=== PATIENT | male | born 1960 | race Caucasian/White ===

== ENCOUNTER 2024-02-15 07:28 | Day surgery (SDC) | payer BC, SELFPAY ==
[2024-01-25 10:11] VITALS: BMI 44.9
[2024-01-25 10:36] LABS: % Basophils 1.3 % (0-2); % Eosinophils 5.6 % (0-6); % Immature Granulocytes 0.6 % (0-0.5); % Lymphocytes 26.7 % (20.5-51.1); % Monocytes 7.8 % (1.7-9.3); Absolute Basophils 0.1 10^3/uL (0-0.2); Absolute Eosinophils 0.3 10^3/uL (0-0.7); Absolute Lymphocytes 1.4 10^3/uL (1.2-3.4); Absolute Monocytes 0.4 10^3/uL (0.1-0.6); Absolute Neutrophils 3.1 10^3/uL (1.4-6.5); Hematocrit 33.4 % (39.0-52.0); Hemoglobin 11.7 g/dL (13.0-18.0); Mean Corpuscular Hgb 31.2 pg (27.0-31.0); Mean Corpuscular Volume 89.1 fL (80.0-94.0); Mean Platelet Volume 10.4 fL (7.4-10.4); Nucleated Red Blood Cells % 0 % (-); Platelet Count 220 10^3/uL (130-400); Red Blood Cell Count 3.75 10^6/uL (4.70-6.10); Red Cell Dist. Width 12.9 % (11.5-14.5); White Blood Cell Count 5.4 10^3/uL (4.8-10.8)
[2024-01-25 10:47] LABS: INR 1.04; PT 13.6 Sec (11.4-14.6)
[2024-01-25 10:51] LABS: ALT (SGPT) 21 U/L (0-50); AST (SGOT) 19 U/L (17-59); Albumin 3.9 g/dl (3.5-5.0); Alkaline Phosphatase 74 U/L (38-126); Blood Urea Nitrogen 30 mg/dl (9-20); Carbon Dioxide 21 mmol/L (22-30); Chloride 107 mmol/L (98-107); Estimated Creatinine Clearance 74 ml/min; Glucose 226 mg/dl (70-99); Magnesium 1.8 mg/dl (1.6-2.3); Sodium 142 mmol/L (135-145); Total Bilirubin 0.3 mg/dl (0.2-1.3); Total Protein 6.3 g/dl (6.3-8.2); eGFR 56.13
[2024-01-25 13:17] LABS: Glycohemoglobin (HgbA1c) 8.1 % (4.0-5.6)
--- NOTE | 2024-01-26 14:17 | W.PN.UPDATE ---
Update Note
Progress Note Update
Incidental thyroid nodule faxed to PCP
[2024-02-15] VITALS (9 sets, daily range): BP systolic 114–153; BP diastolic 64–84; BMI 44.3
[2024-02-15 08:29] LABS: Glucose - Point of Care 182 mg/dl (70-99)
[2024-02-15 11:10] LABS: ACT-LR - POC 158 Seconds (116-155)
[2024-02-15 11:15] LABS: ACT-LR - POC 242 Seconds (116-155)
[2024-02-15 11:15] LABS: ACT-LR - POC 253 Seconds (116-155)
[2024-02-15 11:32] LABS: ACT-LR - POC 303 Seconds (116-155)
[2024-02-15 11:39] LABS: Glucose - Point of Care 149 mg/dl (70-99)
--- NOTE | 2024-02-15 12:16 | ITS.CL.ABL ---
[employer] - Ablation
Ablation
Procedure Report:
ELECTROPHYSIOLOGY ABLATION STUDY
�
DATE:: February 15, 2024�����������������������������REFERRING: Dr. Zenon Landry
�
INDICATION: Paroxysmal supraventricular tachycardia in the form of atrial fibrillation.��Probably also noted to have significant APCs
�
HISTORY: See H and P.��As above
�
ANTIARRHYTHMIC DRUG: Multaq
�
PRE-PROCEDURE ANGELITA: No atrial thrombus
�
PRESENTING RHYTHM: Sinus bradycardia with frequent APD's which were demonstrated to be on the septal aspect of the right gilberto
�
'TIME-OUT':��called and confirmed.
�
SEDATION/ANESTHESIA:��provided via the anesthesia department using general anesthesia (LMA).
�
Right femoral venous - 8Fr
Left femoral venous - 8 Fr, 6 Fr
Ultrasound guidance for bilateral femoral vein access was utilized by me to obtain access with demonstration of normal anatomy
CHADS-VASC Score:
Vascade vascular closure was utilized in bilateral femoral venous sites
HAS-Bled Score
�
PROCEDURE:
1.��A decapolar CS catheter was placed within the CS for mapping and pacing.��This was also used as the reference catheter for the 3-D map.
�
2. The intracardiac ultrasound catheter was positioned in the RA to identify the FO for targeting of transseptal puncture, assist��in identification of the pulmonary vein ostia, monitoring pre and post ablation pulmonary vein flow velocities,
monitoring for 'bubble' formation during RF application as a sign of thermal injury,��and to monitor for pericardial effusion during mapping and ablation procedure.���Left atrial size, LV ejection fraction, and pulmonary vein flows were monitored
pre and post ablation procedure. The other valves were inspected and found to be free of significant regurgitation or stenosis.
�
3.��Half of the calculated heparin bolus was administered prior to the first transeptal puncture.��Transseptal puncture was performed to diagnose RA and LA pressure so that safetey of LA mapping and ablation could be further assessed, and to access
the left atrium and pulmonary veins for mapping and ablation.��This entailed advancing an 14 Tamazight Contour needle with dilator into the superior vena cava and withdrawing both (monitoring intracardiac ultrasound, fluoroscopy and tip pressure) with
the tip oriented toward the atrial septum.��The fossa ovalis was engaged (indicated by sudden displacement of the sheath tip as well as tenting of the fossa seen on intracardiac ultrasound).��Left atrial access required a pass with the Brockendevugh
needle extended.��Left atrial catheter position was confirmed by pressure monitoring (RA mean pressure 8 mm Hg and LA mean presure 12 mm Hg), LA saturation (99 %),��as well as fluoroscopy.��The sheath was advanced over the dilator and positioned in
the left atrium.��This procedure was repeated for the Agilis sheath.��The remainder of the calculated heparin bolus was administered and heparin was
infused to maintain ACT at 300 -350 seconds throughout the case.
�
4.��RA pacing was performed via the proximal decapolar poles and LA pacing was performed via the distal decapolr poles.
�
5. A quadrapolar catheter was first positioned at the His position for His Bundle recording which was tagged via the 3-D Navex sytem, and then passed to the RVA for RV pacing and recording.
�
6. The multipolar catheter and PFA catheter placed in each of the LIPV, LSPV, RSPV and the RIPV.��
�
7.��Next, a 3-D map was created using Navex.���A 3-D reconstructed CT image was compared to the 3-D Navex map to assist in anatomic interpretation, mapping and ablation.��The CT image and the NavX image were fused.
�
8. Pulmonary vein and extrapulmonary lesions were given. 82 PFA lesions were given to the pulmonary veins, interatrial septal region, and the left atrial posterior wall rendering the left atrial posterior wall electrically silent and entrance and
exit block in all 4 pulmonary veins.
With ablation of the septal aspect of the right veins the APD's were abolished and isolated firing was noted in the right superior and right inferior pulmonary veins.
9. Normal sinus node and AV node function noted.
TOTAL FLOURO TIME: 17.6 minutes 163 mGy
�
TOTAL RF DURATION: 0 minutes
�
REVERSAL OF HEPARIN: 35 mg of protamine, slow IV administration
�
COMPLICATIONS:
None
Intracardiac US shows no pericardial effusion post ablation.
�
SUMMARY:��
Complex left atrial mapping and ablation.
Isolation of all 4 pulmonary veins and the left atrial posterior wall. APD's were noted from interatrial septum at the septal aspect of the right veins which were abolished with ablation in that region.
�
RECOMMENDATIONS:
1. Ambulate in 2 to 3 hours
2. Resume anticoagulation
3.��Discontinue dronedarone
4.��Consider same-day discharge
�
Copy to: Dr. Zenon Landry
�
--- NOTE | 2024-02-15 13:35 | PTCARENOTE ---
Accucheck of 234 reported to Beulah BERNARD, no new orders at this time.
[2024-02-15 13:46] LABS: Glucose - Point of Care 234 mg/dl (70-99)
--- NOTE | 2024-02-15 14:55 | W.PN.UPDATE ---
Update Note
Progress Note Update
63 yo WM s/p PVI (same day). He denies cp, sob, jelena diet, voiding, amb w/o dizziness, b/l groins c/d/i soft Vascade closure, EKG SR. He will continue OAC Eliquis dose at home tonight. He will continue diltiazem, metoprolol and stop Multaq. He will
resume his diabetic meds as his BG is elevated from Decadron during case. Activity restrictions reviewed. He will f/u Dr. Landry in 1 mo. He is for d/c home after 3pm if groins remain stable.
SUMMARY:��
Complex left atrial mapping and ablation.
Isolation of all 4 pulmonary veins and the left atrial posterior wall. APD's were noted from interatrial septum at the septal aspect of the right veins which were abolished with ablation in that region.
�
RECOMMENDATIONS:
1. Ambulate in 2 to 3 hours
2. Resume anticoagulation
3.��Discontinue dronedarone
4.��Consider same-day discharge
�
Copy to: Dr. Zenon Landry
== END 2024-02-15 15:00 | disposition home or self-care (01) ==
LOC: CATH 07:28
PROVIDERS: ATTENDING PHYSICIAN Internal Medicine Cardiovascular Disease; FAMILY PHYSICIAN Family Medicine; OTHER PHYSICIAN Internal Medicine Cardiovascular Disease
DX: I48.0 Paroxysmal atrial fibrillation (principal); I12.9 Hypertensive chronic kidney disease with stage 1 through stage 4 chronic kidney disease, or unspecified chronic kidney disease; E11.22 Type 2 diabetes mellitus with diabetic chronic kidney disease; N18.30 Chronic kidney disease, stage 3 unspecified; R00.2 Palpitations; R55 Syncope and collapse; R06.02 Shortness of breath; E66.01 Morbid (severe) obesity due to excess calories; Z68.41 Body mass index [BMI] 40.0-44.9, adult; Z79.84 Long term (current) use of oral hypoglycemic drugs; E78.5 Hyperlipidemia, unspecified; D64.9 Anemia, unspecified; K21.9 Gastro-esophageal reflux disease without esophagitis; F32.A Depression, unspecified; F41.9 Anxiety disorder, unspecified; G47.00 Insomnia, unspecified; G47.33 Obstructive sleep apnea (adult) (pediatric); Z86.006 Personal history of melanoma in-situ; Z87.442 Personal history of urinary calculi; Z79.899 Other long term (current) drug therapy; Z79.01 Long term (current) use of anticoagulants; R00.1 Bradycardia, unspecified
CPT/HCPCS: C1732; C1894; C1769; C1759; C1892; 36415; 75572; 80053; 82962; 83036; 83735; 85025; 85347; 85610; 86850; 86900; 86901; 93005; 93656; 93657; C1730; C1733; C1760; C1766; Q9967